=== PATIENT | male | born 1970 | race Caucasian/White ===

== ENCOUNTER → 2018-11-18 | Outpatient (CLI) | payer OTHER, SELFPAY ==
--- NOTE | 2018-11-18 17:01 | MRI ---
MRI right shoulder without contrast INDICATION: Shoulder pain NOS TECHNIQUE: Noncontrast MR imaging right shoulder FINDINGS: Mild AC joint osteoarthrosis. Diffuse rotator cuff tendinopathy without complete rupture or retraction. Low-grade chronic interstitial partial tears are noted distal supraspinatus and infraspinatus with mild resorption at the greater tuberosity. There is a nondisplaced chronic labral tear superior into the posterior superior labrum. Mild bursal edema is noted. Mild grade 1 marbling throughout the rotator cuff muscle bellies. There is interstitial fissuring-type partial tear involving the upper subscapularis sagittal series 701 image 15 without detachment or retraction. Background tendinopathy is noted. No bicep rupture or dislocation. IMPRESSION: Tendinosis and chronic interstitial partial tears of the rotator cuff without complete rupture or retraction Moderate AC joint osteoarthrosis Chronic nondisplaced superior and posterior superior labral tear Minimal bursal edema Electronically signed by: Johnny Cabrera MD 11/18/2018 5:00 PM [facility]
== END ==
LOC: MRI 11:00
PROVIDERS: ATTEND Family Medicine
DX: S43.431A Superior glenoid labrum lesion of right shoulder, initial encounter (principal); M19.011 Primary osteoarthritis, right shoulder

== ENCOUNTER 2018-12-15 01:58 | Emergency (ER) | payer BC, OTHER ==
[2018-12-15 02:13] VITALS: BP 162/95; TEMP 98.6
[2018-12-15] MEDS ORDERED: predniSONE 20 MG TAB PO ONE (02:23)
[2018-12-15] MEDS ORDERED: KETOROLAC TROMETHAMINE INJ 30 MG/ML VIAL IM ONE (02:23)
--- NOTE | 2018-12-15 02:26 | ED.PDOC ---
History of Present Illness - General Chief Complaint: Upper Extremity Injury Stated Complaint: rt shoulder pain Time Seen by Provider: 12/15/18 02:23 Source: patient Exam Limitations: no limitations - History of Present Illness Initial Comments: the patient's 48-year-old male presenting to the emergency room secondary to recurrent right shoulder pain. He has a history of significant rotator cuff injury as well as labral tear. This is confirmed by MRI last month. 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 Since that time he has been having some increased pain in the right shoulder with some decreased range of motion. No crepitus. No trauma. He is neurovascularly intact. He has not been doing any stretching exercises. He has not been taking any medications. Timing/Duration: other - 48 hours Severity: moderate Improving Factors: nothing Worsening Factors: movement Associated Symptoms: denies symptoms Allergies/Adverse Reactions: Allergies Acetaminophen [From Tylenol] Allergy (Verified 12/15/18 02:13) Penicillins Allergy (Verified 12/15/18 02:13) Home Medications: Ambulatory Orders Albuterol Inhaler [Ventolin Hfa Inhaler] 1 puff INH Q4HR PRN 12/15/18 Cyclobenzaprine HCl [Flexeril] 10 mg PO TID PRN #10 tab 12/15/18 predniSONE [Prednisone] 20 mg PO DAILY #3 tab 12/15/18 Review of Systems - Review of Systems Constitutional: States: no symptoms reported EENTM: States: no symptoms reported Respiratory: States: no symptoms reported Cardiology: States: no symptoms reported Gastrointestinal/Abdominal: States: no symptoms reported Genitourinary: States: no symptoms reported Musculoskeletal: States: see HPI Skin: States: no symptoms reported Neurological: States: no symptoms reported Endocrine: States: no symptoms reported All other Systems: No Change from Baseline Past Medical History (General) - Patient Medical History Hx Asthma: Yes Hx Diabetes: No - Vaccination History Hx Influenza Vaccination: No - Triage Comment ED Triage Comment: seen PCP for shoulder pain, but pain became worse over weekend Family Medical History - Family History Father Family History: Unknown Physical Exam - Physical Exam General Appearance: Alert, Comfortable, No apparent distress Eye Exam: bilateral normal Ears, Nose, Throat: hearing grossly normal Neck: non-tender, full range of motion, supple Respiratory: no respiratory distress, no accessory muscle use Cardiovascular/Chest: normal peripheral pulses, no edema Peripheral Pulses: radial,right: 2+, radial,left: 2+ Rectal Exam: deferred Back Exam: no CVA tenderness, no vertebral tenderness Extremity: no pedal edema, normal capillary refill, other - see history of present illness. The patient is getting some stiffness of the right shoulder with some difficulty withflexion, abduction and extension. 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 He is being given a dose of prednisone, Toradol and a muscle relaxer. He'll be written for 3 more days of prednisone and a muscle relaxer to take as needed. He does need to do range of motion exercises as have been demonstrated along with stretching. He needs to follow back up with his primary care doctor towards the end of the week. ER warnings were given. Departure - Departure Clinical Impression: Rotator cuff strain Qualifiers: Encounter type: initial encounter Laterality: right Qualified Code(s): S46.011A - Strain of muscle(s) and tendon(s) of the rotator cuff of right shoulder, initial encounter Disposition: Discharge to Home or Self Care Condition: Fair Departure Forms: ED Discharge - Pt. Copy, Patient Portal Self Enrollment Instructions: DI for Frozen Shoulder Diet: regular diet Activity: increase activity as tolerated Referrals: Felicity Lainez NP [Family Provider] - 1-2 Weeks Prescriptions: Cyclobenzaprine HCl [Flexeril] 10 mg PO TID PRN #10 tab PRN Reason: Muscle Spasms predniSONE [Prednisone] 20 mg PO DAILY #3 tab Home Medications: Ambulatory Orders Albuterol Inhaler [Ventolin Hfa Inhaler] 1 puff INH Q4HR PRN 12/15/18 Cyclobenzaprine HCl [Flexeril] 10 mg PO TID PRN #10 tab 12/15/18 predniSONE [Prednisone] 20 mg PO DAILY #3 tab 12/15/18 Additional Instructions: the patient's a 48-year-old male presented to the emergency room secondary to a worsening of his right rotator cuff symptoms likely due to increased activity on Friday. He is being given a dose of prednisone, Toradol and a muscle relaxer. He'll be written for 3 more days of prednisone and a muscle relaxer to take as needed. He does need to do range of motion exercises as have been demonstrated along with stretching. He needs to follow back up with his primary care doctor towards the end of the week. ER warnings were given.
[2018-12-15] MEDS: CYCLOBENZAPRINE HCL 10 MG TAB PO ONE ×2 (02:32→02:36)
[2018-12-15 02:46] VITALS: O2SAT 99
== END 2018-12-15 02:45 | disposition home or self-care (01) ==
LOC: ER 01:58
DX: S46.011A Strain of muscle(s) and tendon(s) of the rotator cuff of right shoulder, initial encounter (principal); J45.909 Unspecified asthma, uncomplicated; Z88.6 Allergy status to analgesic agent; Z88.0 Allergy status to penicillin; Z79.899 Other long term (current) drug therapy; X58.XXXA Exposure to other specified factors, initial encounter; Y92.9 Unspecified place or not applicable
CPT/HCPCS: J1885; J7512

== ENCOUNTER → 2019-01-11 | Outpatient (CLI) | payer BC ==
--- NOTE | 2019-01-11 10:53 | RAD ---
EXAM DESCRIPTION: Hand,Right 3 Views CLINICAL HISTORY: 48 years Male, M79.641, M79.642 COMPARISON: None. FINDINGS: Three views of the right hand show no acute fracture or malalignment. Mild joint space narrowing at the first CMC joint with small osteophyte formation at the same location. No lytic or sclerotic bone lesion. The soft tissues are unremarkable. IMPRESSION: Mild degenerative changes at the first CMC joint, otherwise unremarkable exam. Electronically signed by: Troy Mills MD 01/11/2019 10:50 AM CDT
--- NOTE | 2019-01-11 10:56 | RAD ---
EXAM DESCRIPTION: Hand,Left 3 Views CLINICAL HISTORY: M79.641, M79.642 COMPARISON: None Available. TECHNIQUE: AP, LATERAL, AND OBLIQUE FINDINGS: Three views left hand demonstrate normal mineralization with minimal degenerative changes at the base of the thumb and index finger at the carpal metacarpal articulation. Radiopaque foreign material along the edges of the fingernails involving the second, third, and fourth fingers is evident. No fracture or dislocation is seen. Visualized portions of the wrist are unremarkable. No destructive or erosive changes are seen. No occult fracture or other radiopaque foreign body noted. IMPRESSION: 1. Normal left hand three views. Electronically signed by: Ghassan Hendrickson MD 01/11/2019 10:54 AM CDT
== END ==
LOC: RAD 08:36
PROVIDERS: ATTEND Orthopaedic Surgery
DX: M79.641 Pain in right hand (principal); M79.642 Pain in left hand

== ENCOUNTER 2019-04-21 05:46 | Day surgery (SDC) | payer BC ==
--- NOTE | 2019-04-19 12:47 | HP ---
CHIEF COMPLAINT: Left hand numbness and left third digit triggering. HISTORY OF PRESENT ILLNESS: Sonu is a 48-year-old male with a history of numbness in the hand with some associated triggering and pain in the third digit. He has had this going on for quite a while and is now requesting operative intervention. He says the numbness occurs on a daily basis and does wake him up at night. He has had incidents of gross locking in the third digit with pain. The pain registers variably and today is relatively minimal. PAST SURGICAL HISTORY: 1. Carpal tunnel release. MEDICATIONS: 1. Meloxicam. ALLERGIES: PENICILLIN, TYLENOL CODE STATUS: Full code. IMMUNIZATIONS: Up to date. SOCIAL HISTORY: The patient does not drink, smoke or use any illicit drugs. FAMILY HISTORY: None pertinent to today's complaint. REVIEW OF SYSTEMS: Negative except as indicated in the History of Present Illness. PHYSICAL EXAMINATION: VITAL SIGNS: Blood pressure 179/90. Pulse 73. Height 5'8". Weight 230 pounds. MENTAL STATUS: The patient is awake, alert, and is able to give a good history and participate in the physical. The patient is oriented to person, place and time. SKIN: Normal tone and turgor. HEENT: Normocephalic, atraumatic. Pupils equal, round and reactive. Mucosal membranes are moist. NECK: Normal range of motion. No thyromegaly, no lymphadenopathy. CHEST: Normal respiratory excursion. CARDIAC: Regular rate and rhythm. No murmurs, rubs or gallops. MUSCULOSKELETAL: The bilateral lower extremities show full active range of motion with no pain. He has no crepitus and there is no deformity. Sensation is intact in both extremities. They are warm and well perfused. Strength is equivalent bilaterally. The right upper extremity does show a positive carpal compression test. Sensation right at this moment at rest is intact. The hand is warm and well perfused. He maintains full range of motion of all the digits, elbow and shoulder. The left upper extremity shows full range of motion of the shoulder, elbow, wrist and digits. He has pain with range of motion of the third digit and palpable clicking at the A1 flavia. He has no tingling, but he does have positive carpal compression test. He has intact strength and no deformity. ASSESSMENT: 1. Carpal tunnel syndrome. 2. Triggering. PLAN: The plan at this point is carpal tunnel release. We have discussed the risks, benefits, and alternatives to that and the patient has given informed consent. [id number]
[2019-04-21] MEDS ORDERED: LIDOCAINE 1% 10 ML VIAL INJ ONE ×2 (08:34→10:00)
[2019-04-21] MEDS ORDERED: ceFAZolin SODIUM 1 GM VIAL ONE ×2 (08:34→10:59)
[2019-04-21] MEDS ORDERED: BUPIVACAINE 0.25% INJ 30 ML VIAL INJ ONE (08:34)
[2019-04-21] MEDS ORDERED: PROPOFOL 200 MG/20 ML VIAL IV ONE (10:00)
[2019-04-21] MEDS ORDERED: LACTATED RINGERS 1,000 ML ONE (10:58)
[2019-04-21] MEDS ORDERED: SODIUM CHL 0.9% 100ML MINI-BAG 100 ML IVPB ONE (10:59)
[2019-04-21] MEDS ORDERED: MIDAZOLAM INJ 2 MG/2 ML VIAL ONE (11:16)
[2019-04-21] MEDS ORDERED: fentaNYL CITRATE INJ 50 MCG/ML AMP ONE (11:16)
[2019-04-21] MEDS: VANCOMYCIN HCL INJ 1,000 MG VIAL IVPB ONE ×2 (12:10→12:32)
[2019-04-21 13:31] VITALS: BP 132/85; TEMP 97.1; O2SAT 96
--- NOTE | 2019-04-23 15:30 | OP ---
DATE OF PROCEDURE: 04/21/19 PREOPERATIVE DIAGNOSIS: 1. Carpal tunnel syndrome. 2. Trigger finger. POSTOPERATIVE DIAGNOSIS: 1. Carpal tunnel syndrome. 2. Trigger finger. PROCEDURE: SURGEON: Sonu Acevedo M.D. CMO & PRESIDENT: Francisco Irby CST, SA-C ANESTHESIA: Local with sedation. COMPLICATIONS: None. FINDINGS: 1. Triggering at the A-1 flavia of the left third digit. 2. Thickening of the transverse carpal ligament. INDICATION FOR PROCEDURE: Mr. Moctezuma has a history of numbness and triggering at the A-1 flavia. He requested operative intervention for ongoing symptoms and failure of conservative measures. After discussing the risks, benefits, and alternatives to that he gave informed consent for that procedure. DESCRIPTION OF PROCEDURE: The patient was brought to the Operating Room and placed in supine position. Sedation was administered and local anesthetic was injected into the operative area. The arm was sterilely prepped and draped. Following prepping and draping, longitudinal incision measuring approximately 3 cm was made directly overlying the transverse carpal ligament. Blunt dissection was used to identify the transverse carpal ligament, which was sharply incised in a longitudinal fashion. [place] elevator was passed both proximally and distally to ensure complete release of the transverse carpal ligament. Once complete release had been confirmed, the wound was very thoroughly irrigated and closed with Nylon suture. A transverse incision was made directly overlying the A1 flavia of the triggering digit and blunt dissection was carried down to the flavia while protecting the digital nerves. After identification of the flavia, the flavia was transected and a [place] elevator was passed both proximally and distally to ensure complete release. The finger was flexed and extended and there was no evidence of locking or clicking. Both wounds were thoroughly irrigated and closed with Nylon suture. A sterile dressing were placed. The patient was awakened from anesthesia and taken back to the Day Surgery Unit. POSTOPERATIVE INSTRUCTIONS: The patient is going to be doing range of motion of the digits and will followup with us in 2 days. #[id number] [facility]
== END 2019-04-21 13:25 | disposition home or self-care (01) ==
LOC: AMB 05:46
PROVIDERS: ATTEND Orthopaedic Surgery
DX: G56.02 Carpal tunnel syndrome, left upper limb (principal); M65.332 Trigger finger, left middle finger; Z88.0 Allergy status to penicillin; Z88.6 Allergy status to analgesic agent; Z79.899 Other long term (current) drug therapy
CPT/HCPCS: 01810; 26055; 64721; 80307; J1956; J2250; J3010; J3370; J3490; J7120

== ENCOUNTER → 2019-05-13 | Outpatient (CLI) | payer BC | LOC: LAB.O 09:01 | PROVIDERS: ATTEND Orthopaedic Surgery | DX: Z01.818 Encounter for other preprocedural examination (principal) ==

== ENCOUNTER 2019-06-02 05:54 | Day surgery (SDC) | payer BC ==
--- NOTE | 2019-05-31 08:19 | HP ---
CHIEF COMPLAINT: Right wrist pain and numbness. HISTORY OF PRESENT ILLNESS: Mr. Moctezuma is a 48-year-old male with a history of pain in the right wrist. He has also had some numbness although he has had an improvement with symptoms in the last 3 to 4 weeks. That said, they have been present for a very long time and he has had a history of carpal tunnel release on the right side. He denies trauma associated with this and denies any radiation of pain in the wrist. He does have some ulnar sided wrist pain today as well. He has had injections into the wrist, however, that has failed to give him relief. He has had left sided carpal tunnel release in the past and that has been successful for him. The is requesting right carpal tunnel release. PAST SURGICAL HISTORY: 1. Carpal tunnel release. MEDICATIONS: 1. Meloxicam. ALLERGIES: PENICILLIN, TYLENOL. CODE STATUS: Full code. IMMUNIZATIONS: Up to date. SOCIAL HISTORY: The patient does not drink, smoke or use any illicit drugs. FAMILY HISTORY: None pertinent to today's complaint. REVIEW OF SYSTEMS: Negative except as indicated in the History of Present Illness. PHYSICAL EXAMINATION: VITAL SIGNS: Blood pressure 137/87. Pulse 69. Height 5'8". Weight 220 pounds. MENTAL STATUS: The patient is awake, alert, and is able to give a good history and participate in the physical. The patient is oriented to person, place and time. SKIN: Normal tone and turgor. MUSCULOSKELETAL: He has a well-healed scar on the palmar aspect of the hand. He has full range of motion of the digits. He does have some pain in the wrist to palpation and has pain along the ulnar aspect. He has full flexion strength of the digits. There is no instability of the wrist and there is no deformity. He has negative Tinel's today and he does have mildly positive carpal compression test. ASSESSMENT: 1. Carpal tunnel syndrome. PLAN: The plan at this point is for carpal tunnel release. We have discussed the risks, benefits, and alternatives to that and the patient has given informed consent. [facility][id number] [facility]
[2019-06-02] MEDS ORDERED: LACTATED RINGERS 1,000 ML ONE (08:57)
[2019-06-02] MEDS ORDERED: SODIUM CHL 0.9% 100ML MINI-BAG 100 ML IVPB ONE (08:59)
[2019-06-02] MEDS ORDERED: ceFAZolin SODIUM 1 GM VIAL ONE ×2 (09:00→10:00)
[2019-06-02 09:15] VITALS: O2SAT 97
[2019-06-02] MEDS ORDERED: VANCOMYCIN HCL INJ 1,000 MG VIAL IVPB ONE (10:00)
[2019-06-02] MEDS ORDERED: PROPOFOL 200 MG/20 ML VIAL IV ONE (10:00)
[2019-06-02] MEDS ORDERED: LIDOCAINE 1% 10 ML VIAL INJ ONE (10:00)
[2019-06-02] MEDS ORDERED: LIDOCAINE 1% 50 ML VIAL INJ ONE (10:00)
[2019-06-02] MEDS ORDERED: BUPIVACAINE 0.25% INJ 30 ML VIAL INJ ONE (10:00)
[2019-06-02 13:22] VITALS: BP 138/80; TEMP 98.3
--- NOTE | 2019-06-06 15:56 | OP ---
DATE OF PROCEDURE: 06/02/19 PREOPERATIVE DIAGNOSIS: 1. Carpal tunnel syndrome. POSTOPERATIVE DIAGNOSIS: 1. Carpal tunnel syndrome. PROCEDURE: 1. Carpal tunnel release. SURGEON: Sonu Acevedo M.D. SAUSAGE CUTTER: Francisco Irby CST, SA-C ANESTHESIA: Local with sedation. COMPLICATIONS: None. FINDINGS: Narrowing of the median nerve across the carpal tunnel. INDICATION FOR PROCEDURE Mr. Moctezuma has a history both of pain and numbness in the wrist. Because of the findings and the ongoing symptoms he has requested operative intervention. He has a history of previous carpal tunnel release. We discussed the risks, benefits, and alternatives to that and informed consent was obtained. PROCEDURE: The patient was brought to the Operating Room and placed in the supine position. Sedation was administered and local anesthetic was injected into the operative area under sterile conditions. After the injection of anesthetic, the arm was sterilely prepped and draped. A longitudinal incision was made directly overlying the transverse carpal ligament and blunt dissection was carried down to the ligament. The transverse carpal ligament was sharply transected along its length and a [place] elevator was used to ensure complete release of the ligament. Once release had been confirmed, the wound was thoroughly irrigated and the wound was closed with Nylon suture. A sterile dressing was placed and the patient was taken to the Day Surgery Unit. POSTOPERATIVE INSTRUCTIONS: He will be doing range of motion of the digits and he will followup with us in 2 days. #[id number] [facility]TD[facility]
== END 2019-06-02 11:50 | disposition home or self-care (01) ==
LOC: AMB 05:54
PROVIDERS: ATTEND Orthopaedic Surgery
DX: G56.01 Carpal tunnel syndrome, right upper limb (principal); E66.9 Obesity, unspecified; Z68.32 Body mass index [BMI] 32.0-32.9, adult; Z79.1 Long term (current) use of non-steroidal anti-inflammatories (NSAID); Z88.0 Allergy status to penicillin; Z88.6 Allergy status to analgesic agent
CPT/HCPCS: 01810; 64721; 80307; J0690; J3370; J3490; J7050; J7120

== ENCOUNTER → 2019-08-25 | Outpatient (CLI) | payer BC ==
--- NOTE | 2019-08-26 13:18 | MRI ---
EXAM DESCRIPTION: Cervical Spine CLINICAL HISTORY: CERVICAL RADICULOPATHY COMPARISON: None. TECHNIQUE: Multiplanar MRI of the cervical spine was performed without contrast. FINDINGS: Cervical vertebral body heights are maintained. No marrow replacing process. Decreased signal on T1 and T2-weighted sequences throughout the osseous structures could represent red marrow regeneration. Straightening of the normal cervical lordosis. Craniocervical junction shows mild clifford cisterna magna which is a anatomic variant. Spinal cord shows normal MRI signal. Soft tissues show mild increased T2 signal in the posterior left paraspinal musculature adjacent to the C7 and T1 spinous processes mildly extending towards the right. Desiccation of the disc spaces throughout the cervical spine are seen. C1-2 and craniocervical junction Unremarkable C2-3 Mild bilateral facet hypertrophic and degenerative changes are seen without spinal canal stenosis or foraminal encroachment. C3-4 Mild diffuse disc space narrowing. Mild anterior Modic type I endplate signal changes. Mild bilateral uncovertebral joint disc osteophytic ridging is seen with mild bilateral foraminal encroachment. C4-5 Minimal loss of disc space height. No spinal canal stenosis or foraminal encroachment. C5-6 Mild loss of disc space height. Less than 2 mm broad-based disc bulge mildly narrows the anterior subarachnoid space. Minimal spinal canal stenosis without foraminal encroachment is seen. C6-7 Mild diffuse disc space narrowing. A 2 to 3 mm broad-based ventral ridging disc osteophyte complex eccentric towards the right narrows the anterior and posterior subarachnoid space resulting in mild spinal canal stenosis. The thecal sac measures 7 mm AP centrally. Mild bilateral uncovertebral joint disc osteophytic ridging is seen with moderate left and mild right foraminal encroachment. C7-T1 No significant findings. IMPRESSION: Mild disc degenerative changes and facet arthropathy of the cervical spine is seen most prominent at C6-7. Mild spinal canal stenosis with moderate left and mild right foraminal encroachment is seen at C6-7. Mild bilateral foraminal encroachment is seen at C3-4. Nonspecific straightening of the normal cervical lordosis could be secondary to patient positioning or muscle spasm. Mild soft tissue edema in the paraspinal muscles left greater than right posterior to C7 and T1 could represent muscle strain or sprain. Electronically signed by: Maximo Reid MD 08/26/2019 1:17 PM [facility]
--- NOTE | 2019-08-26 13:27 | MRI ---
EXAM DESCRIPTION: Lumbar Spine w/o Contrast CLINICAL HISTORY: LUMBAR RADICULOPATHY COMPARISON: None. TECHNIQUE: Multiplanar, multisequence MRI of the lumbar spine was performed without contrast. FINDINGS: Lumbar vertebral body heights are maintained. Normal alignment of the lumbar spine. No marrow replacing process. Decreased signal on T1 and T2-weighted sequences throughout the osseous structures could represent red marrow regeneration which can be seen in patients with anemia or chronic illness. No STIR signal abnormalities are seen in the osseous structures. Conus medullaris terminates at L2 which is low-lying. Visualized intra-abdominal retroperitoneal structures show no acute findings. Mild degenerative changes of the sacroiliac joints. L1-2 No significant findings. L2-3 No significant findings. L3-4 No significant findings. L4-5 Mild bilateral facet hypertrophic and degenerative changes. No spinal canal stenosis or foraminal encroachment. L5-S1 Disc desiccation and mild posterior disc space narrowing. Moderate right and mild left facet hypertrophic and degenerative changes. Small left facet joint effusion. No spinal canal stenosis. Mild bilateral foraminal encroachment without nerve root impingement. IMPRESSION: Mild facet arthropathy from L4 through S1 most prominent on the right at L5-S1. Mild disc disease at L5-S1. Electronically signed by: Maximo Reid MD 08/26/2019 1:25 PM [employer]
== END ==
LOC: MRI 07:00
PROVIDERS: ATTEND Psychiatry & Neurology Neurology
DX: M51.16 Intervertebral disc disorders with radiculopathy, lumbar region (principal); M50.123 Cervical disc disorder at C6-C7 level with radiculopathy; M48.02 Spinal stenosis, cervical region; M79.9 Soft tissue disorder, unspecified

== ENCOUNTER → 2019-12-08 | Outpatient (CLI) | payer BC | LOC: GMA MATASK 10:36 | PROVIDERS: ATTEND Family Medicine | DX: M25.50 Pain in unspecified joint (principal) ==